=== PATIENT | female | born 1985 | race American Indian/Alaskan Native ===

== ENCOUNTER 2019-04-27 08:30 | Inpatient (IN) | payer MEDICAID, OTHER ==
--- NOTE | 2019-05-02 17:14 | History and Physical Report ---
History of Present Illness Date of examination: 05/01/19 Chief complaint: Scheduled section History of present illness: Pt is a 33 year old -N[place]alese female TAMEKA 05/23/19 at 37w1d with a h/o three prior sections and a h/o chronic hypertension on Labetalol 200mg PO BID who presents for scheduled section. She denies vaginal bleeding or leakage of fluid. She has had care at [facility] with comanagement by [facility] secondary to chronic hypertension on Labetalol 200 mg BID, glucose intolerance,alpha thalassemia carrier status, morbid obesity, fetus small or gestational age with lagging BPD, HC, and AC at 5%ile. She is GBS positive. She does not desire future fertility. Past History Past Medical History: hypertension (Labetalol 200mg BID ) Past Surgical History: section (2006, 2007, 2010) Family/Genetic History: diabetes, heart disease, cancer Social history: - Obstetrical History Expected Date of Delivery: 05/23/19 Actual Gestation: 37 Week(s) 0 Day(s) : 5 Para: 3 Hx # Term Pregnancies: 2 Number of Pregnancies: 1 Spontaneous Abortions: 0 Induced : 1 Number of Living Children: 3 Medications and Allergies Allergies Allergy/AdvReac Type Severity Reaction Status Date / Time No Known Allergies Allergy Verified 11/03/15 20:28 Home Medications Medication Instructions Recorded Confirmed Last Taken Type Sulfamethoxazole/Trimethoprim 1 each PO BID #14 tablet 11/04/15 Unknown Rx [Bactrim DS TAB] Active Meds: Active Medications Citric Acid/Sodium Citrate (Bicitra) 30 ml PO ONCE ONE Stop: 05/03/19 05:01 Famotidine (Pepcid) 20 mg IV ONCE ONE Stop: 05/03/19 05:01 Oxytocin/Sodium Chloride (Pitocin/Ns 20 Unit/1000ml Drip) 20 units in 1,000 mls @ 0 mls/hr IV TITR CONSUELO Lactated Ringer's (Lactated Ringers) 1,000 mls @ 2,250 mls/hr IV PREOP CONSUELO Stop: 05/04/19 05:27 Cefazolin Sodium (Ancef/Sterile Water 2 Gm/20 Ml) 2 gm in 20 mls @ 80 mls/hr IV PREOP NR; Protocol Metoclopramide HCl (Reglan) 10 mg IV ONCE ONE Stop: 05/03/19 05:01 Review of Systems All systems: negative - Physical Exam Breasts: Positive: deferred Abdomen: Positive: soft (obese, gravid ) Uterus: Positive: enlarged (gravid ) Extremities: Positive: edema (trace ) - Obstetrical FHR: auscultation normal Uterine Contraction Monitor Mode: External Uterine Contraction Pattern: Absent Uterine Tone Measurement Phase: Resting Results All other labs normal. Assessment and Plan A: IUP at 37w1d Chronic HTN on Labetalol 200 mg BID SGA fetus with BPD, AC and HC lagging below 6th percentile Previous section x 3 Morbid Obesity Alpha Thalassemia Carrier GBS Positive Undesired Fertility P: Proceed with repeat section, bilateral tubal ligation and other indicated procedures
[2019-05-03] MEDS ORDERED: LACTATED RINGERS 1,000 ML IV SCH (05:00)
[2019-05-03] MEDS ORDERED: OXYTOCIN 20 UNIT/1000ML DRIP 20 UNITS/1,000 ML BAG IV SCH ×2 (05:00→12:58)
[2019-05-03] MEDS ORDERED: FAMOTIDINE 20 MG/2 ML INJ IV ONE (06:00)
[2019-05-03] MEDS ORDERED: ceFAZolin/Water 2 GM/20 ML 2 GM/20 ML SYRINGE IV NR (06:00)
[2019-05-03] MEDS ORDERED: BICITRA ORAL LIQD 30ML PO ONE (06:00)
[2019-05-03] MEDS ORDERED: METOCLOPRAMIDE 10 MG/2 ML INJ IV ONE (06:00)
[2019-05-03 07:23] LABS: Basophils % (Auto) 0.2 % (0.0-1.8); Eosinophils # (Auto) 0.1 K/mm3 (0.0-0.4); Eosinophils % (Auto) 1.2 % (0.0-4.3); Hematocrit 33.9 % (30.3-42.9); Hemoglobin 11.1 gm/dl (10.1-14.3); Lymphocytes # (Auto) 1.8 K/mm3 (1.2-5.4); Lymphocytes % (Auto) 24.2 % (13.4-35.0); Mean Corpuscular HGB Conc 33 % (30-34); Mean Corpuscular Volume 78 fl (79-97); Monocytes # (Auto) 0.7 K/mm3 (0.0-0.8); Monocytes % (Auto) 9.1 % (0.0-7.3); Platelet Count 270 K/mm3 (140-440); Red Blood Count 4.37 M/mm3 (3.65-5.03); Red Cell Distribution Width 16.5 % (13.2-15.2)
[2019-05-03 07:34] LABS: Alanine Aminotransferase 13 units/L (7-56)
--- NOTE | 2019-05-03 07:42 | Anesthesia Consultation ---
Anesthesia Consult and Med Hx Date of service: 05/03/19 - Airway Anesthetic Teeth Evaluation: Good ROM Head & Neck: Adequate Mental/Hyoid Distance: Adequate Mallampati Class: Class II Intubation Access Assessment: Probably Good - Pulmonary Exam CTA: Yes - Cardiac Exam Cardiac Exam: RRR - Pre-Operative Health Status ASA Pre-Surgery Classification: ASA3 Proposed Anesthetic Plan: Spinal - Pulmonary Hx Asthma: No COPD: No Hx Pneumonia: No - Cardiovascular System Hx Hypertension: Yes - Central Nervous System Hx Seizures: No Hx Psychiatric Problems: No - Endocrine Hx Renal Disease: No Hx End Stage Renal Disease: No Hx Hypothyroidism: No Hx Hyperthyroidism: No - Hematic Hx Anemia: No Hx Sickle Cell Disease: No - Other Systems Hx Alcohol Use: No Hx Obesity: Yes
--- NOTE | 2019-05-03 07:42 | Anesthesia Day of Surgery ---
Anesthesia Day of Surgery - Day of Surgery Patient Examined: Yes Patient H&P Reviewed: Yes Patient is NPO: Yes
[2019-05-03] MEDS ORDERED: ceFAZolin/STERILE WATER 2 GM/20 ML SYRINGE IV ONE (08:35)
[2019-05-03] MEDS ORDERED: WATER FOR IRRIG STERILE 1,500 ML BOTTLE IR ONE (09:00)
[2019-05-03] MEDS ORDERED: SODIUM CHLORIDE 0.9% IRR 1,500 ML BOTTLE IR ONE (09:00)
[2019-05-03] MEDS ORDERED: KETOROLAC 30 MG/1 ML INJ ONE (09:00)
[2019-05-03] MEDS ORDERED: PHENYLEPHRINE/NS 1,000 MCG/10 ML SYRINGE (OR USE) IV ONE (09:01)
[2019-05-03] MEDS ORDERED: ONDANSETRON 4 MG/2 ML INJ ONE (09:01)
[2019-05-03] MEDS ORDERED: DEXMEDETOMIDINE 200 MCG/2 ML VIAL IV ONE (09:01)
[2019-05-03] MEDS ORDERED: BUPIVACAINE/PF (0.5%) 5 MG/1 ML 30 ML VIAL INFILTRATI ONE (09:01)
[2019-05-03] MEDS ORDERED: OXYTOCIN 10 UNIT/1 ML INJ ONE (09:01)
[2019-05-03] MEDS ORDERED: SODIUM CHLORIDE 0.9% 500 ML 500 ML ONE (09:13)
--- NOTE | 2019-05-03 10:16 | Procedure Note ---
OB Delivery Note - Delivery Date of Delivery: 05/03/19 Surgeon: TIFFANIE GUTIÉRREZ Estimated blood loss: 500cc - Section Preop diagnosis: repeat , desires sterilization, other (chronic hypertension, small for gestational age fetus ) Postop diagnosis: same section procedure: section, repeat low transverse, bilateral tubal ligation Disposition: PACU Complications: none Narrative: Please see operative report - A at 1 minute: 8 at 5 minutes: 9 Gender: Female (2283g (5lb 1 oz) @ 0914 am)
--- NOTE | 2019-05-03 10:17 | Operative Report ---
Operative Report Operative Report: Date of procedure: May 03, 2019 Preoperative diagnosis: 1) IUP at 37w1d 2) Chronic HTN on Labetalol 3) Small for Gestational Age 4) Morbid Obesity 5) Undesired Fertility Postoperative diagnosis: Same Procedure: 1) Repeat low transverse section 2) Bilateral tubal ligation via modified [place] method Surgeon: Odilia Winkler M.D. Anesthesia: Regional Findings: 1) Viable female , Apgars 8 and 9, weight 2283g, (5 lb 1 oz) in cephalic presentation 2) Normal appearing ovaries and tubes Estimated blood loss: 500 mL Urine output: 50 mL, clear at the end of the procedure Drains: Simon to gravity Specimens: Placenta, tubal segments to pathology Complications: Counts correct x 3 Disposition: Stable to PACU Indication for procedure: Pt is a 33 year old -[place] female at 37w1d with chronic hypertension on medication, small for gestational age fetus, three prior carol debbi sections and undesired fertility presents for repeat section. Operation in detail: After the risks, benefits, alternatives and complications were explained to the patient she gave informed consent for the procedure. She was subsequently taken to the operating room where regional anesthesia was noted to be adequate. She was then placed in the dorsal supine position with leftward tilt and prepped and draped in a normal sterile fashion. heart tones were noted prior to incision. A timeout was performed. A Pfannenstiel skin incision was made with the knife and carried down to the layer of the fascia with the Bovie. The fascia was incised in the midline and the fascial incision was extended bilaterally with the Bovie. The fascial incision was then stretched. The rectus muscles were then in the midline and partially transected for adequate visualization. The peritoneum was then entered sharply between two Carmella clamps. The peritoneal incision was ext ended with good visualization of the bladder. The peritoneal incision was then stretched. An Mayur retractor was placed. The bladder blade was placed. The vesicouterine peritoneum was noted to be adherent to the lower uterine segment so a bladder flap was not created. A transverse incision was made in the lower uterine segment with a knife and extended bilaterally with the bandage scissors. The head was delivered without difficulty followed by delivery of the shoulders and body. was bulb suctioned at delivery. The cord was clamped and cut and the was handed to NICU staff in attendance. Cord blood was collected. The placenta was then delivered manually. The uterus was exteriorized and cleared of all clots and debris. The hysterotomy was then reapproximated with 0 Vicryl in a running locked fashion. A second layer of the same suture was used in an imbricated fashion. The hysterotomy was inspected and hemostasis was noted. Attention was then turned to the tubal ligation. The left tube was identified, grasped with a nichole and followed out to the fimbriae. The tube was suture ligated via a modified [place] method using 0 chromic suture. The intervening tubal segment was sent to pathology. The right tube was then identified, followed out to the fimbriae and suture ligated via a modified [place] method using 0 chromic suture.The intervening tubal segment was sent to pathology. Hemostasis was noted. Surgicel was placed over the tubal ostia bilaterally. The uterus was placed back into the peritoneal cavity and the gutters were irrigated and cleared of all clots and debris. The hysterotomy was again inspected and noted to be hemostatic. Surgicel was placed over the hysterotomy. The peritoneum was reapproximated with 2-0 Vicryl in a running fashion incorporating the rectus muscles. Interrupted figure of eight stiches of 0-Vicryl and 3-0 Vicryl were used to reapproximate the rectus muscles. The fascia was reapproximated with 0- Vicryl in a running fashion. The subcutaneous tissue was reapproximated with 3-0 Vicryl in a running fashion. The skin was reapproximated with 4-0 Vicryl in a subcuticular fashion. The incision was then covered with steri strips and a pressure dressing. The procedure was then ended. The patient tolerated the procedure well and was taken to the PACU in stable condition. All instrument, lap, and needle counts were correct 3.
--- NOTE | 2019-05-03 10:31 | Post Anesthesia Evaluation ---
- Post Anesthesia Evaluation Patient Participated: Yes Airway Patent: Yes Stable Respiratory Function: Yes Nausea/Vomiting: No Temp > 96.8F: Yes Pain Manageable: Yes Adequeate Hydration: Yes Anesthesia Complications: No Block Receding Appropriately: Yes
[2019-05-03] MEDS ORDERED: NALOXONE 0.4 MG/1 ML INJ IV PRN (12:58)
[2019-05-03] MEDS ORDERED: WITCH HAZEL/ GLYCERIN PAD TP PRN (12:58)
[2019-05-03] MEDS ORDERED: MAGNESIUM HYDROXIDE (MOM) ORAL LIQD UDC PO PRN (12:58)
[2019-05-03] MEDS ORDERED: ONDANSETRON 4 MG/2 ML INJ IV PRN (12:58)
[2019-05-03] MEDS ORDERED: LANOLIN/ZINC/DIMETHICONE (LANSINOH) 7 GM TP PRN (12:58)
[2019-05-03] MEDS ORDERED: SIMETHICONE 80 MG CHEW TAB PO PRN (12:58)
[2019-05-03] MEDS: KETOROLAC 30 MG/1 ML INJ IV SCH ×2 (13:46→20:05)
[2019-05-03] MEDS ORDERED: D5W/LACTATED RINGERS 1,000 ML IV SCH (14:00)
[2019-05-03] MEDS ORDERED: hydrALAZINE 20 MG/1 ML INJ IV PRN (17:18)
[2019-05-03] MEDS: oxyCODONE /ACETAMINOPHEN 5-325MG TAB PO PRN (17:26)
[2019-05-03] MEDS: ceFAZolin/NS 1 GM/50 ML 1 GM/50 ML BAG IV SCH (17:27)
[2019-05-04] MEDS: oxyCODONE /ACETAMINOPHEN 5-325MG TAB PO PRN ×4 (00:55→20:25)
[2019-05-04 01:01] LABS: Hematocrit 31.6 % (30.3-42.9); Hemoglobin 10.4 gm/dl (10.1-14.3)
[2019-05-04] MEDS: ceFAZolin/NS 1 GM/50 ML 1 GM/50 ML BAG IV SCH (01:30)
[2019-05-04] MEDS: KETOROLAC 30 MG/1 ML INJ IV SCH (02:45)
[2019-05-04] MEDS ORDERED: TETANUS,DIPH,PERTUSS(ACELL) VACCINE 0.5 ML SYRINGE IM ONE (06:00)
--- NOTE | 2019-05-04 08:23 | Progress Note ---
Assessment and Plan POD1 s/p repeat c/s with BTL Chronic HTN- resume Labetalol PO. If severe range BP, collect PIH labs Mild anemia- ferrous sulfate Anticipate d/c on POD3 Subjective - Subjective Date of service: 05/04/19 Principal diagnosis: s/p repeat c/s Interval history: POD1 s/p repeat c/s. Hx chronic HTN, had not taken Labetalol for a day, elevated BP overnight. Patient reports: appetite normal, voiding normally, pain well controlled, flatus, ambulating normally [place]: doing well, nursing well (both), bottle feeding Objective - Vital Signs Latest vital signs: Vital Signs Temp Pulse Resp BP BP Pulse Ox 05/04/19 00:30 97.4 F L 72 16 114/78 05/03/19 22:10 110 H 146/82 05/03/19 19:30 98.7 F 88 18 136/81 05/03/19 18:56 155/85 05/03/19 17:13 97.8 F 99 H 20 167/96 05/03/19 12:00 97.9 F 82 16 147/85 100 05/03/19 11:25 97.7 F 79 14 124/79 100 05/03/19 11:10 86 16 127/76 100 05/03/19 10:55 96 H 17 133/82 99 05/03/19 10:40 95 H 23 126/99 100 05/03/19 10:35 91 H 12 111/62 100 05/03/19 10:30 88 15 129/76 100 05/03/19 10:25 97.9 F 91 H 12 124/75 100 Intake and Output 05/03/19 05/04/19 05/04/19 23:59 07:59 15:59 Intake Total 470 300 Output Total 800 Balance -330 300 Intake: IV 50 ANCEF/NS 1 GM/50 ML 1 gm 50 In 50 ml @ 100 mls/hr IV Q8H [facility] Rx#:[id number] Oral 120 Intake, Free Water 300 300 Output: Urine 800 Indwelling Catheter 800 Other: Total, Intake Amount 120 Total, Output Amount 800 # Voids Void 1 - Exam Breasts: Present: Lungs: Present: Normal air movement Abdomen: Present: soft Uterus: Present: firm, fundal height below umbilicus Extremities: Present: normal Incision: Present: dressed
[2019-05-04] MEDS: FERROUS SULFATE 325 MG TAB PO SCH (10:15)
[2019-05-04] MEDS: IBUPROFEN 800 MG TAB PO PRN ×2 (10:16→21:09)
[2019-05-04] MEDS ORDERED: MEASLES, MUMPS & RUBELLA 12,500 UNIT/0.5 ML VACCINE SUB-Q ONE (10:26)
[2019-05-05] MEDS: oxyCODONE /ACETAMINOPHEN 5-325MG TAB PO PRN ×3 (00:23→11:51)
[2019-05-05] MEDS: IBUPROFEN 800 MG TAB PO PRN ×2 (03:07→13:39)
[2019-05-05 03:20] LABS: Hematocrit 30.3 % (30.3-42.9); Hemoglobin 9.9 gm/dl (10.1-14.3); Mean Corpuscular HGB Conc 33 % (30-34); Mean Corpuscular Volume 78 fl (79-97); Platelet Count 280 K/mm3 (140-440); Red Blood Count 3.88 M/mm3 (3.65-5.03); Red Cell Distribution Width 16.7 % (13.2-15.2)
[2019-05-05 03:33] LABS: Alanine Aminotransferase 13 units/L (7-56)
[2019-05-05 04:25] LABS: Uric Acid 3.2 mg/dL (3.5-7.6)
[2019-05-05 05:55] LABS: Bilirubin,Urine NEG (Negative); Blood,Urine LG (Negative); Color,Urine Amber (Yellow); Mucus,Urine 3+ /HPF; Urobilinogen,Urine < 2.0 mg/dL (<2.0)
[2019-05-05 05:56] LABS: Protein,Urine >500 mg/dL (Negative); RBC,Urine > 182.0 /HPF (0.0-6.0)
[2019-05-05 05:58] LABS: Creatinine,Urine 331.6 mg/dL (0.1-20.0)
[2019-05-05 06:10] LABS: Protein/Creatinine Ratio,Urine 0.8
--- NOTE | 2019-05-05 07:52 | Discharge Summary ---
Providers - Providers Date of Admission: 05/03/19 05:44 Date of discharge: 05/05/19 Attending physician: CLAUDIA HAWTHORNE Primary care physician: CLAUDIA HAWTHORNE Hospitalization Reason for admission: section Delivery: Procedure: section, bilateral tubal ligation, repeat low transverse Procedure details: Please see operative report. Incision: intact Discharge diagnosis: IUP at term delivered [place] baby: female Hospital course: Pt was admitted for scheduled section and tubal ligation secondary to chronic HTN on meds at term. She tolerated the procedure well and met discharge criteria on POD#2. She will follow up in 3-4 days in the office for an incision check. She has been given PIH precautions. Condition at discharge: Stable Disposition: TO HOME OR SELFCARE - Discharge Diagnoses (1) S/P section Status: Acute (2) Morbid obesity Status: Acute (3) Chronic hypertension Status: Acute (4) Anemia Status: Acute Qualifiers: Anemia type: unspecified type Qualified Code(s): D64.9 - Anemia, unspecified Plan - Discharge Medications Prescriptions: Ferrous Sulfate [Ferrous Sulfate 324 MG] 324 mg PO BID #60 tablet. labetaloL [Labetalol 200mg TAB] 200 mg PO BID #60 tablet Ibuprofen [Motrin] 600 mg PO Q6H PRN #60 tablet PRN Reason: Pain oxyCODONE /ACETAMINOPHEN [Percocet 5/325] 1 tab PO Q6HR PRN #40 tablet PRN Reason: Pain - Provider Discharge Summary Activity: routine, no sex for 6 weeks, no heavy lifting 4 weeks, no strenuous exercise Diet: routine Instructions: routine Additional instructions: [] Smoking cessation referral if applicable(refer to patient education folder for contact #) [] Refer to [facility] Booklet Call your doctor immediately for: * Fever > 100.5 * Heavy vaginal bleeding ( >1 pad per hour) * Severe persistent headache * Shortness of breath * Reddened, hot, painful area to leg or breast * Drainage or odor from incision. * Keep incision clean and dry at all times and follow doctor's instructions regarding bathing/showering - Follow up plan Follow up: CLAUDIA HAWTHORNE MD [Primary Care Provider] - 05/09/19 (Please call the office to schedule a blood pressure check )
--- NOTE | 2019-05-05 07:52 | Progress Note ---
Assessment and Plan A: POD#2 s/p repeat section and tubal ligation at 37 wks, Chronic HTN, Morbid Obesity P: Per pt request, plan to discharge later today. RTC in 3-4 days in the office for blood pressure check Subjective - Subjective Date of service: 05/05/19 Principal diagnosis: s/p repeat c/s, chronic HTN, Morbid Obesity Interval history: Pt without complaints. + flatus. No bowel movement. She strongly requests to be discharged today because her sister is in town until Wednesday. Patient reports: appetite normal, voiding normally, pain well controlled, flatus, ambulating normally, no bowel movement [place]: doing well Objective - Vital Signs Latest vital signs: Vital Signs Temp Pulse Resp BP BP Pulse Ox 05/05/19 05:23 18 05/05/19 03:07 18 05/05/19 02:45 105 H 135/69 05/05/19 00:46 98.8 F 117 H 18 148/94 95 05/05/19 00:23 18 05/04/19 21:09 110 H 18 150/94 05/04/19 20:25 18 05/04/19 20:22 98.5 F 110 H 18 150/94 99 05/04/19 15:38 98.5 F 110 H 18 129/81 99 05/04/19 10:17 20 05/04/19 08:09 98.5 F 108 H 18 135/79 96 Intake and Output 05/04/19 05/05/19 05/05/19 22:59 06:59 14:59 Intake Total 1080 360 Balance 1080 360 Intake: Oral 240 120 Intake, Free Water 840 240 Other: Total, Intake Amount 240 120 # Voids Void 1 - Exam Breasts: Present: deferred Cardiovascular: Present: Regular rate Lungs: Present: Clear to auscultation Abdomen: Present: soft (obese ) Uterus: Present: fundal height below umbilicus Incision: Present: dressed - Labs Labs: Abnormal lab results 05/05/19 05/05/19 05/05/19 Range/Units 02:57 02:57 Unknown Hgb 9.9 L (10.1-14.3) gm/dl MCV 78 L (79-97) fl MCH 25 L (28-32) pg RDW 16.7 H (13.2-15.2) % Creatinine 0.5 L (0.7-1.2) mg/dL Uric Acid 3.2 L (3.5-7.6) mg/dL Lactate Dehydrogenase 193 H (91-180) units/L Ur Specific [place] 1.035 H (1.003-1.030) Urine WBC (Auto) 26.0 H (0.0-6.0) /HPF U Epithel Cells (Auto) 121.0 H (0-13.0) /HPF Urine Creatinine (0.1-20.0) mg/dL Urine Total Protein (5-11.8) mg/dL 05/05/19 Range/Units Unknown Hgb (10.1-14.3) gm/dl MCV (79-97) fl MCH (28-32) pg RDW (13.2-15.2) % Creatinine (0.7-1.2) mg/dL Uric Acid (3.5-7.6) mg/dL Lactate Dehydrogenase (91-180) units/L Ur Specific [place] (1.003-1.030) Urine WBC (Auto) (0.0-6.0) /HPF U Epithel Cells (Auto) (0-13.0) /HPF Urine Creatinine 331.6 H (0.1-20.0) mg/dL Urine Total Protein 266 H (5-11.8) mg/dL
[2019-05-05] MEDS: MAGNESIUM HYDROXIDE (MOM) ORAL LIQD UDC PO SCH ×2 (08:36→16:13)
[2019-05-05] MEDS: FERROUS SULFATE 325 MG TAB PO SCH (09:29)
[2019-05-05 17:12] VITALS: BP 137/74
== END 2019-05-05 21:00 | disposition home or self-care (01) | DRG 765 ==
LOC: APU 05-03 05:44 → OB 05-03 12:18
PROVIDERS: ADMIT Obstetrics & Gynecology; ATTEND Obstetrics & Gynecology
PROC: 10D00Z1 Extraction of Products of Conception, Low, Open Approach (ICD-10-PCS; principal; 2019-05-03)
PROC: 0UT70ZZ Resection of Bilateral Fallopian Tubes, Open Approach (ICD-10-PCS; 2019-05-03)
PROC: 3E0234Z Introduction of Serum, Toxoid and Vaccine into Muscle, Percutaneous Approach (ICD-10-PCS; 2019-05-04)
PROC: 3E0134Z Introduction of Serum, Toxoid and Vaccine into Subcutaneous Tissue, Percutaneous Approach (ICD-10-PCS; 2019-05-04)
DX: O10.92 Unspecified pre-existing hypertension complicating childbirth (principal); O99.12 Other diseases of the blood and blood-forming organs and certain disorders involving the immune mechanism complicating childbirth; O99.824 Streptococcus B carrier state complicating childbirth; O99.02 Anemia complicating childbirth; D56.3 Thalassemia minor; O34.211 Maternal care for low transverse scar from previous cesarean delivery; E66.01 Morbid (severe) obesity due to excess calories; O99.214 Obesity complicating childbirth; Z3A.37 37 weeks gestation of pregnancy; Z37.0 Single live birth; Z23 Encounter for immunization; Z82.49 Family history of ischemic heart disease and other diseases of the circulatory system; Z83.3 Family history of diabetes mellitus; Z80.9 Family history of malignant neoplasm, unspecified; Z30.2 Encounter for sterilization
CPT/HCPCS: 36415; 81001; 82565; 82570; 83615; 84156; 84450; 84460; 84550; 85014; 85018; 85025; 85027; 86850; 86900; 86901; 87086; 88302; G0378; J0360; J0690; J1885; J2370; J2405; J2590; J2765; J3490; J7040; J7120; J7121